=== PATIENT | male | born 1960 | race Caucasian/White ===

== ENCOUNTER 2021-02-03 17:05 | Emergency (ER) | payer OTHER ==
[2021-02-03] MEDS ORDERED: Sodium Chloride 0.9% 10 ML Syringe FLUSH PRN (17:41)
[2021-02-03] MEDS ORDERED: cefTRIAXone 2 GM Vial IVPUSH STA (17:43)
[2021-02-03] MEDS ORDERED: Sulfamethoxazole/Trimethoprim 800-160 MG Tab PO STA (17:43)
--- NOTE | 2021-02-03 17:59 | EDM.PDOC ---
ED HPI GENERAL MEDICAL PROBLEM - General Chief Complaint: Lower Extremity Injury/Pain Stated Complaint: RIGHT FOOT SWELLING Time Seen by Provider: 02/03/21 17:10 Source of Information: Reports: Patient History Limitations: Reports: No Limitations - History of Present Illness INITIAL COMMENTS - FREE TEXT/NARRATIVE: Patient presented to the ED because of Rt foot pain,swelling,redness which started 01/31/21. He developed fever and chills on Sunday and was seen by Dr Roamn that day who prescribed him keflex. - Related Data Allergies Allergy/AdvReac Type Severity Reaction Status Date / Time meperidine HCl [From Demerol] Allergy Severe Anaphylactic Verified 03/19/15 05:42 Shock Home Meds: Home Meds Divalproex Sodium [Depakote] 125 mg DAILY 03/18/15 [History] Exenatide [Byetta] 10 units BIDM 03/18/15 [History] Fenofibrate Nanocrystallized [Fenofibrate] 145 mg PO BEDTIME 03/18/15 [History] Glimepiride 1 mg PO BIDM 03/18/15 [History] Hydrochlorothiazide/Lisinopril [Lisinopril-HCTZ 20-25 MG] 1 tab DAILY 03/18/15 [History] Metoprolol Succinate [Toprol Xl] 100 mg PO BID 03/18/15 [History] Simvastatin 40 mg BEDTIME 03/18/15 [History] oxyCODONE HCl/Acetaminophen [oxyCODONE-Acetaminophen 5-325] 2 tab Q4H PRN 03/18/15 [History] PARoxetine HCl [Paxil] 40 mg PO DAILY 03/19/15 [History] Sulfamethoxazole/Trimethoprim [Bactrim Ds Tablet] 1 each PO BID #20 tablet 02/03/21 [Rx] Past Medical History Other Respiratory History: patient states that he has a nodule on his right upper lung Review of Systems - Review of Systems Review Of Systems: See Below Eyes: Reports: No Symptoms Ears: Reports: No Symptoms Nose: Reports: No Symptoms Mouth/Throat: Reports: No Symptoms Respiratory: Reports: No Symptoms Cardiovascular: Reports: No Symptoms GI/Abdominal: Reports: No Symptoms Genitourinary: Reports: No Symptoms Musculoskeletal: Reports: No Symptoms Skin: Reports: Erythema Neurological: Reports: No Symptoms Psychiatric: Reports: No Symptoms ED EXAM, GENERAL - Physical Exam Exam: See Below Exam Limited By: No Limitations General Appearance: Alert, No Apparent Distress Ears: Normal External Exam, Normal Canal Nose: Normal Inspection, Normal Mucosa Throat/Mouth: Normal Inspection, Normal Lips, Normal Teeth Head: Atraumatic, Normocephalic Neck: Normal Inspection, Supple, Non-Tender, Full Range of Motion Respiratory/Chest: No Respiratory Distress, Lungs Clear, Normal Breath Sounds, No Accessory Muscle Use, Chest Non-Tender Cardiovascular: Normal Peripheral Pulses, Regular Rate, Rhythm, No Edema, No Gallop, No JVD, No Murmur, No Rub GI/Abdominal: Normal Bowel Sounds, Soft, Non-Tender, No Organomegaly, No Distention, No Abnormal Bruit, No Mass Back Exam: Normal Inspection, Full Range of Motion Extremities: Normal Inspection, Normal Range of Motion, Non-Tender, No Pedal Edema, Normal Capillary Refill Neurological: Alert, Oriented, CN II-XII Intact, Normal Cognition Psychiatric: Normal Affect Skin Exam: Erythema Course - Vital Signs Text/Narrative:: Lab result was reviewed and discussed with patient Rocephin 2 gm IV x1 Bactrim DS 1 Po x1 I told Mr Eubanks that he need to be admitted to the hospital because of his right foot cellulitis but he refused so I gave him the option of coming back daily for IV therapy as an outpatient which he agreed. He also mentioned that he has an upcoming appointment for a follow up with Dr Roman this week. Last Recorded V/S: Last Vital Signs Temp 36.6 C 02/03/21 17:06 Pulse 86 02/03/21 18:15 Resp 20 02/03/21 18:15 BP 115/67 02/03/21 18:15 Pulse Ox 100 02/03/21 18:15 - Orders/Labs/Meds Orders: Active Orders 24 hr Category Date Time Status CULTURE BLOOD [BC] Urgent Lab 02/03/21 17:50 Received CULTURE BLOOD [BC] Urgent Lab 02/03/21 17:55 Received Blood Culture x2 Reflex Set [OM.PC] Urgent Oth 02/03/21 17:41 Ordered Saline Lock Insert [OM.PC] Routine Oth 02/03/21 17:41 Ordered Labs: Laboratory Tests 02/03/21 02/03/21 02/03/21 Range/Units 17:50 17:50 17:50 WBC 12.6 H (3.2-10.1) x10-3/uL RBC 3.98 (3.90-5.90) x10(6)uL Hgb 12.7 L (12.9-17.7) g/dL Hct 37.6 L (38.3-50.1) % MCV 94.4 (80.8-98.7) fL MCH 31.9 (27.0-33.3) pg MCHC 33.8 (28.7-35.3) g/dL RDW 13.4 (12.4-15.0) % Plt Count 183 (117-477) x10(3)uL MPV 7.6 (6.7-11.0) fL Neut % (Auto) 81.8 H (40.3-71.8) % Lymph % (Auto) 9.1 L (15.8-45.3) % [place] % (Auto) 8.2 (5.5-15.2) % Eos % (Auto) 0.4 (0.1-6.8) % Baso % (Auto) 0.5 (0.3-3.8) % Neut # (Auto) 10.3 H (1.7-6.9) x10-3/uL Lymph # (Auto) 1.1 (0.5-4.5) x10-3/uL [place] # (Auto) 1.0 (0.0-1.2) x10-3/uL Eos # (Auto) 0.1 (0.0-0.6) x10-3/uL Baso # (Auto) 0.1 (0.0-0.3) x10-3/uL Sodium 135 (135-145) mmol/L Potassium 3.4 L (3.5-5.3) mmol/L Chloride 98 L (100-110) mmol/L Carbon Dioxide 26 (21-32) mmol/L BUN 26 H (7-18) mg/dL Creatinine 1.4 H (0.70-1.30) mg/dL Est Cr Clr Drug Dosing 56.49 mL/min Estimated GFR (MDRD) 51 L (>60) BUN/Creatinine Ratio 18.6 (9-20) Glucose 209 H (80-116) mg/dL Lactic Acid 1.3 (0.4-2.0) mmol/L Calcium 8.7 (8.6-10.2) mg/dL Total Bilirubin 0.6 (0.1-1.3) mg/dL AST 29 H (5-25) IU/L ALT 34 (12-36) U/L Alkaline Phosphatase 76 (56-112) IU/L Total Protein 7.7 (6.0-8.0) g/dL Albumin 2.8 L (3.2-4.6) g/dL Globulin 4.9 g/dL Albumin/Globulin Ratio 0.6 Meds: Medications Discontinued Medications Generic Name Dose Route Start Last Admin Trade Name Freq PRN Reason Stop Dose Admin Ceftriaxone Sodium 2 gm 02/03/21 17:43 02/03/21 18:06 Ceftriaxone 2 Gm Vial IVPUSH 02/03/21 17:44 2 gm NOW STA Administration Sodium Chloride 10 ml 02/03/21 17:41 Sodium Chloride 0.9% 10 Ml Syringe FLUSH ASDIRECTED PRN Keep Vein Open Trimethoprim/Sulfamethoxazole 1 tab 02/03/21 17:43 02/03/21 18:10 Sulfamethoxazole/Trimethoprim 800-160 Mg Tab PO 02/03/21 17:44 1 tab NOW STA Administration Departure - Departure Time of Disposition: 18:30 Disposition: Home, Self-Care 01 Condition: Good Clinical Impression: Cellulitis, Hypokalemia - Discharge Information Prescriptions: Sulfamethoxazole/Trimethoprim [Bactrim Ds Tablet] 1 each PO BID #20 tablet Instructions: Cellulitis, Adult, [id number] Referrals: Will Roman MD [Primary Care Provider] - Forms: ED Department Discharge Additional Instructions: Please read discharge instructions on cellulitis Bactrim twice daily for 10 days klor con 20 meq, tablets 3times daily for 1 day You need to go to [facility] ER at 4 pm for an outpatient IV therapy with Rocephin for 5 days until your infection is controlled(02/03/21-02/08/21) Sepsis Event Note (ED) - Evaluation Sepsis Screening Result: No Definite Risk - Focused Exam Vital Signs: Vital Signs Temp Pulse Resp BP Pulse Ox 02/03/21 18:15 86 20 115/67 100 02/03/21 17:06 36.6 C 85 20 104/59 L 97 - My Orders Last 24 Hours: My Active Orders 02/03/21 17:41 Blood Culture x2 Reflex Set [OM.PC] Urgent Saline Lock Insert [OM.PC] Routine 02/03/21 17:50 CULTURE BLOOD [BC] Urgent 02/03/21 17:55 CULTURE BLOOD [BC] Urgent - Assessment/Plan Last 24 Hours: My Active Orders 02/03/21 17:41 Blood Culture x2 Reflex Set [OM.PC] Urgent Saline Lock Insert [OM.PC] Routine 02/03/21 17:50 CULTURE BLOOD [BC] Urgent 02/03/21 17:55 CULTURE BLOOD [BC] Urgent
[2021-02-03 18:30] VITALS: BP 115/67; PULSE 86
== END 2021-02-03 18:28 | disposition home or self-care (01) ==
LOC: FB.ED 17:05
DX: L03.115 Cellulitis of right lower limb (principal); E87.6 Hypokalemia; Z88.5 Allergy status to narcotic agent; Z79.899 Other long term (current) drug therapy
CPT/HCPCS: 36415; 80053; 83605; 85025; 87040; 96374; 99283; A9270; J0696

== ENCOUNTER 2023-01-17 15:17 | Inpatient (IN) | payer OTHER ==
[2023-01-17] MEDS ORDERED: Haloperidol Lactate 2 MG/ML Oral Soln 15 ML Bottle *PTOM PO PRN (16:39)
[2023-01-17] MEDS ORDERED: Hyoscyamine 0.125 MG Tab.SL *PTOM PO PRN (16:42)
[2023-01-17] MEDS ORDERED: Morphine 10 MG/0.5 ML Oral Syringe PO PRN (16:44)
[2023-01-17] MEDS ORDERED: Ondansetron 4 MG Tab.DIS *PTOM PO PRN (16:45)
[2023-01-17] MEDS ORDERED: DIPHENHYDRAMINE PO PRN (16:48)
[2023-01-17] MEDS ORDERED: ACETAMINOPHEN PO PRN (16:48)
[2023-01-17] MEDS: Gabapentin 300 MG Cap *PTOM PO SCH (20:20)
[2023-01-17] MEDS: LEVETIRACETAM 1000 MG PO SCH (20:21)
[2023-01-17] MEDS ORDERED: Famotidine 20 MG Tab PO SCH (21:00)
[2023-01-17] MEDS ORDERED: Mirtazapine 15 MG Tab *PTOM PO SCH (21:00)
[2023-01-17] MEDS ORDERED: traZODone 50 MG Tab *PTOM PO SCH (21:00)
[2023-01-17] MEDS ORDERED: Morphine 10 MG/0.5 ML Oral Syringe PO SCH (21:00)
[2023-01-17] MEDS: LORazepam 0.5 MG Tab PO PRN (22:51)
[2023-01-18 06:57] VITALS: BP 119/67; PULSE 93
[2023-01-18] MEDS: Gabapentin 300 MG Cap *PTOM PO SCH (08:27)
[2023-01-18] MEDS: LEVETIRACETAM 1000 MG PO SCH (08:27)
[2023-01-18] MEDS ORDERED: Sertraline 50 MG Tab PO SCH (09:00)
[2023-01-18] MEDS ORDERED: Dexamethasone 4 MG Tab *PTOM PO SCH (09:00)
[2023-01-18] MEDS ORDERED: Docusate Sodium/Sennosides 50-8.6 MG Tab *PTOM PO SCH (09:00)
[2023-01-18] MEDS ORDERED: Haloperidol Lactate 2 MG/ML Oral Soln 15 ML Bottle PO SCH ×2 (10:00→11:00)
[2023-01-18] MEDS: LORazepam 0.5 MG Tab PO PRN (10:45)
[2023-01-18] MEDS ORDERED: Haloperidol Lactate Oral Concetrate 2 MG/ML ML 120 ML Bottle PO ONE (11:45)
== END 2023-01-18 11:35 | disposition home or self-care (01) | DRG 951 ==
LOC: FB.MS 16:07
PROVIDERS: ADMIT Family Medicine; ATTEND Internal Medicine
DX: Z51.5 Encounter for palliative care (principal); Z75.5 Holiday relief care
CPT/HCPCS: A9270-GY; J8540; Q5005